=== PATIENT | female | born 1980 | race Caucasian/White ===

== ENCOUNTER 2023-04-01 08:45 | Emergency (ER) | payer SELFPAY ==
[~2023-04-01] VITALS: Ht 162.6 cm; Wt 64.0 kg
[2023-04-01 09:48] LABS: CHLORIDE 108 mEq/L (98-107); INDEX HEMOLYSI 1 (1-3); INDEX ICTERIC 1 (1-4); INDEX LIPEMIC 1 (1-3); POTASSIUM 3.5 mEq/L (3.5-5.1); SODIUM 140 mEq/L (136-145)
[2023-04-01 09:57] LABS: ALANINE AMINOTRANSFERASE 23 IU/L (13-61); ALBUMIN 3.1 g/dL (3.4-5.0); ASPARTATE AMINOTRANSFERASE 15 IU/L (15-37); BILIRUBIN TOTAL 0.4 mg/dL (0.1-1.0); CALCIUM 8.5 mg/dL (8.5-10.1); CARBON DIOXIDE 29 mEq/L (21-32); CREATININE 0.5 mg/dL (0.6-1.3); ETHANOL BLOOD < 10 mg/dL (-10); GLUCOSE 93 mg/dL (70-105); PROTEIN TOTAL 7.7 g/dL (6.0-8.3); UREA NITROGEN BLOOD 8 mg/dL (7-21)
[2023-04-01 10:05] LABS: BASOPHILS % 0.2 % (0.0-2.0); EOSINOPHILS % 0.7 % (0.0-5.0); HEMOGLOBIN. 10.9 g/dL (12.0-16.0); LYMPHOCYTES % 36.6 % (20.0-50.0); MEAN CORPUSCULAR HEMOGLOBIN 28.7 pg (28.0-32.0); MEAN CORPUSCULAR HGB CONC 32.9 g/dL (31.0-37.0); MEAN CORPUSCULAR VOLUME 87.3 fL (81.0-99.0); MEAN PLATELET VOLUME 7.7 fl (7.4-10.4); MONOCYTES % 3.8 % (2.0-8.0); NEUTROPHILS % 58.7 % (40.0-76.0); PLATELET 315 x1000/uL (130-400); RED BLOOD CELL COUNT 3.78 mill/uL (4.2-5.4); RED CELL DISTRIBUTION WIDTH 17.2 % (11.6-14.6); WHITE BLOOD COUNT 9.8 x1000/uL (4.5-11.0)
[2023-04-01] MEDS ORDERED: LORAZEPAM 2MG/ML CPJ IM ONE (16:30)
[2023-04-01] MEDS ORDERED: LORAZEPAM 2MG/ML CPJ IM NR (16:30)
[2023-04-01] MEDS ORDERED: HALOPERIDOL LACTATE 5MG/ML VIAL IM ONE (16:30)
[2023-04-01] MEDS ORDERED: DIPHENHYDRAMINE 50MG/ML VIAL IM NR (16:30)
[2023-04-01] MEDS ORDERED: DIPHENHYDRAMINE 50MG/ML VIAL IM ONE (16:30)
[2023-04-01] MEDS ORDERED: HALOPERIDOL LACTATE 5MG/ML VIAL IM NR (16:30)
[2023-04-01 16:58] LABS: HCG SCREEN NEGATIVE
[2023-04-01 23:30] LABS: *BARBITURATES SCREEN URINE NEGATIVE (NEGATIVE); *BENZODIAZEPINES SCREEN URINE NEGATIVE (NEGATIVE); ECSTASY MDMA SCREEN URINE NEGATIVE (NEGATIVE); METHADONE URINE SCREEN NEGATIVE (NEGATIVE); OPIATES URINE SCREEN NEGATIVE (NEGATIVE); PHENCYCLIDINE URINE SCREEN NEGATIVE (NEGATIVE)
[2023-04-02 00:14] LABS: *AMPHETAMINES SCREEN URINE PRESUMTIVE POSITIVE (NEGATIVE); *COCAINE SCREEN URINE PRESUMTIVE POSITIVE (NEGATIVE); CANNABINOID URINE SCREEN PRESUMTIVE POSITIVE (NEGATIVE)
[2023-04-02] MEDS ORDERED: HALOPERIDOL LACTATE 5MG/ML VIAL IM STA (17:26)
[2023-04-02] MEDS ORDERED: LORAZEPAM 2MG/ML CPJ IM STA (17:26)
[2023-04-02] MEDS ORDERED: DIPHENHYDRAMINE 50MG/ML VIAL IM STA (17:26)
[2023-04-03] MEDS ORDERED: OLANZAPINE 10 MG/VIAL IM ONE (08:00)
[2023-04-03] MEDS ORDERED: HALOPERIDOL LACTATE 5MG/ML VIAL IM ONE (13:30)
[2023-04-03 14:53] LABS: CLARITY URINE CLEAR (CLEAR); COLOR URINE YELLOW (YELLOW); GLUCOSE URINE NEGATIVE (NEGATIVE); KETONES URINE NEGATIVE (NEGATIVE); LEUKOCYTE ESTERASE URINE 2+ (NEGATIVE); NITRITE URINE NEGATIVE (NEGATIVE); OCCULT BLOOD URINE NEGATIVE (NEGATIVE); PROTEIN URINE NEGATIVE (NEGATIVE); SPECIFIC GRAVITY URINE 1.014 (1.005-1.030)
[2023-04-03 15:42] LABS: BACTERIA URINE 1+; RBC URINE 0-2 /hpf (0-2); SQUAMOUS EPITHELIAL CELL URINE RARE /lpf (RARE/1+); WBC URINE 15-25 /hpf (0-2)
[2023-04-03] MEDS ORDERED: OLANZAPINE 5MG TABLET ODT PO SCH (17:00)
[2023-04-03] MEDS ORDERED: LORAZEPAM 2MG/ML CPJ IM ONE (19:30)
[2023-04-03] MEDS ORDERED: OLANZAPINE 10 MG/VIAL IM NR (19:37)
[2023-04-03] MEDS ORDERED: LORAZEPAM 2MG/ML CPJ IM NR (21:15)
[2023-04-03 22:45] VITALS: O2SAT 95
[2023-04-04] MEDS ORDERED: LORAZEPAM 2MG/ML CPJ IM STA (10:54)
[2023-04-04] MEDS ORDERED: OLANZAPINE 10 MG/VIAL IM ONE (11:00)
[2023-04-04 16:03] VITALS: BP 142/67; PULSE 101; RESP 19; TEMP 98.1
== END 2023-04-04 16:28 ==
LOC: ER 09:17 → EDBD 09:17 → ER 04-04 16:28
DX: R45.6 Violent behavior (principal); F15.10 Other stimulant abuse, uncomplicated; Z20.822 Contact with and (suspected) exposure to COVID-19
CPT/HCPCS: 80053; 80305; 80307; 80329; 80320; 84703; 85025; 36415; 96372; 99285; 87426; J1200 ×2; J1630 ×3; J2060 ×4; C9803; Z7610 ×2; J3490 ×2; G0480